=== PATIENT | male | born 1955 | race Two or more races ===

== ENCOUNTER 2024-09-06 17:10 | Inpatient (IN) | payer MEDICARE, BC ==
[~2024-09-06] VITALS: Ht 190.5 cm; Wt 126.4 kg
[2024-09-06 18:06] LABS: Basophils # (auto) 0.1 10 ^3/uL (0-0.2); Basophils % (auto) 0.8 % (0.0-2.0); Eosinophils # (auto) 0.3 10 ^3/uL (0-0.8); Eosinophils % (auto) 4.3 % (0.0-7.0); Hematocrit 43.3 % (41.0-53.0); Hemoglobin 14.6 g/dL (13.5-17.5); Lymphocytes # (auto) 1.2 10 ^3/uL (0.4-5.4); Lymphocytes % (auto) 14.5 % (10.0-50.0); Mean Corpuscular Hemoglobin 32.4 pg (28.0-32.0); Mean Corpuscular Hgb Conc. 33.6 g/dL (32.0-36.0); Mean Corpuscular Volume 96.4 fL (80.0-100.0); Monocytes # (auto) 0.7 10 ^3/uL (0-1.3); Neutrophils # (auto) 5.8 10 ^3/uL (1.6-8.6); Neutrophils % (auto) 71.4 % (37.0-80.0); Nucleated Red Blood Cells % 0.1 %; Platelet Count (auto) 291 10^3/uL (140-450); Red Blood Cells 4.49 10^6/uL (4.5-5.90); Red Cell Distribution Width 14.8 % (11.8-14.3); White Blood Cell 8.1 10^3/uL (4.4-10.8)
[2024-09-06] MEDS: CLINDAMYCIN 900MG IV 50 ML IV ONE (18:12)
[2024-09-06 18:21] LABS: Alanine Aminotransferase 43 U/L (7-40); Alkaline Phosphatase 100 U/L (46-116); Anion Gap 8 (5-15); Aspartate Aminotransferase 29 U/L (13-40); BUN/Creatinine Ratio 11.1 (10.0-20.0); Blood Urea Nitrogen 21 mg/dL (9-23); Calcium 9.5 mg/dL (8.7-10.4); Carbon Dioxide 26 mmol/L (20-31); Chloride 104 mmol/L (98-107); Glucose 140 mg/dL (74-106); Potassium 4.2 mmol/L (3.5-5.1); Sodium 138 mmol/L (136-145)
[2024-09-06 18:22] LABS: Albumin 4.4 g/dL (3.2-4.8); Bilirubin, Total 1.1 mg/dL (0.2-1.0); Total Protein 7.5 g/dL (5.7-8.2)
[2024-09-06 18:30] LABS: CRP High Sensitivity 7.56 mg/dL (<1.0)
[2024-09-06 19:03] LABS: Erythrocyte Sedimentation Rate 25 mm/hr (0-20)
[2024-09-06] MEDS ORDERED: MORPHINE SULFATE INJ 2 MG/ml SYRG IV PRN ×2 (22:00→23:00)
[2024-09-06] MEDS ORDERED: hydrALAZINE HCL 20 MG/ML VL IV PRN (22:00)
[2024-09-06] MEDS ORDERED: DOCUSATE SOD 100 MG CAP PO PRN (22:00)
[2024-09-06] MEDS ORDERED: ONDANSETRON HCL 4 MG/2 ML VIAL IV PRN (22:00)
[2024-09-06] MEDS ORDERED: HYDROcodone-ACET 5/325MG TAB PO PRN (22:00)
[2024-09-06] MEDS ORDERED: ACETAMINOPHEN 325 MG TAB PO PRN (22:00)
[2024-09-06] MEDS ORDERED: NITROGLYCERIN 0.4 MG SL TAB SL PRN (23:00)
[2024-09-06] MEDS: METOPROLOL TARTRATE 50 MG TAB PO SCH (23:02)
[2024-09-06] MEDS: SODIUM CHLOR 0.9% PF (SALINE LOCK) 10ML VIAL/SYR IV SCH (23:04)
[2024-09-06 23:56] VITALS: PULSE 71; RESP 11; O2SAT 99
[2024-09-07] VITALS (8 sets, daily range): BP systolic 114–144; BP diastolic 74–92; PULSE 67–76; RESP 16–18; TEMP 97.9–98.2; O2SAT 93–96
[2024-09-07 04:36] LABS: Urine Clarity CLEAR (Clear); Urine Color Yellow (Yellow); Urine Protein, UAD Trace (Negative); Urine Specific Gravity 1.021 (1.001-1.035)
[2024-09-07 04:37] LABS: Urine Blood Normal /uL (Negative); Urine Urobilinogen Normal (Negative); Urine pH 5.5 (5.0-9.0)
[2024-09-07 05:19] LABS: Urine WBC 0-3 /hpf (0 - 3)
[2024-09-07 05:20] LABS: Urine Bacteria Rare /hpf (None Seen); Urine Budding Yeast Rare /hpf (None Seen); Urine Mucus Few (None Seen)
[2024-09-07] MEDS ORDERED: CLINDAMYCIN 600MG IV 50 ML IV SCH (06:00)
[2024-09-07] MEDS: CLINDAMYCIN 600MG IV 50 ML IV SCH (07:26)
[2024-09-07] MEDS: RIVAROXABAN 20 MG TAB PO SCH (11:03)
[2024-09-07 14:07] LABS: Anion Gap 6 (5-15); Carbon Dioxide 25 mmol/L (20-31); Chloride 104 mmol/L (98-107); Potassium 4.1 mmol/L (3.5-5.1); Sodium 135 mmol/L (136-145)
[2024-09-07 14:08] LABS: Calcium 9.3 mg/dL (8.7-10.4)
[2024-09-07 14:13] LABS: BUN/Creatinine Ratio 13.1 (10.0-20.0); Blood Urea Nitrogen 22 mg/dL (9-23); Glucose 148 mg/dL (74-106)
[2024-09-07] MEDS ORDERED: MELO15TA29 PO (15:22)
[2024-09-07] MEDS ORDERED: BUPR-581 PO (15:22)
[2024-09-07] MEDS ORDERED: DULO1CAP6 PO (15:22)
[2024-09-07] MEDS ORDERED: LOSA-535 PO (15:22)
[2024-09-07] MEDS ORDERED: AMLO1TAB23 PO (15:22)
[2024-09-07] MEDS ORDERED: METO-159 PO (15:22)
[2024-09-07] MEDS ORDERED: FURO20TA4 PO (15:22)
[2024-09-08 01:00] VITALS: BP 134/83; PULSE 71; RESP 17; TEMP 98.3; O2SAT 95
[2024-09-08 05:00] VITALS: BP 129/73; PULSE 70; RESP 18; TEMP 98; O2SAT 95
[2024-09-08 06:21] LABS: Anion Gap 4 (5-15); Carbon Dioxide 28 mmol/L (20-31); Chloride 106 mmol/L (98-107); Potassium 4.6 mmol/L (3.5-5.1); Sodium 138 mmol/L (136-145)
[2024-09-08 06:23] LABS: Calcium 9.7 mg/dL (8.7-10.4)
[2024-09-08 06:27] LABS: BUN/Creatinine Ratio 12.2 (10.0-20.0); Blood Urea Nitrogen 20 mg/dL (9-23); Glucose 102 mg/dL (74-106)
[2024-09-08 08:00] VITALS: PULSE 61; PULSE 74; RESP 18
[2024-09-08 08:12] VITALS: BP 134/98; PULSE 73; RESP 19; TEMP 97.9; O2SAT 95
[2024-09-08 11:30] VITALS: BP 151/82; PULSE 71; RESP 19; TEMP 98; O2SAT 95
[2024-09-08] MEDS ORDERED: RIV20T PO (11:31)
[2024-09-08] MEDS ORDERED: DOXY1CAP57 PO (13:54)
== END 2024-09-08 14:32 | disposition home or self-care (01) | DRG 602 ==
LOC: ER 17:10 → TELE 23:01 → TELE-WESTW 09-07 05:15
PROVIDERS: ADMIT Nurse Practitioner Family; ATTEND Hospitalist
DX: L03.115 Cellulitis of right lower limb (principal); N17.0 Acute kidney failure with tubular necrosis; I82.531 Chronic embolism and thrombosis of right popliteal vein; R73.9 Hyperglycemia, unspecified; I48.91 Unspecified atrial fibrillation; I50.9 Heart failure, unspecified; N18.9 Chronic kidney disease, unspecified; Z82.49 Family history of ischemic heart disease and other diseases of the circulatory system; Z80.8 Family history of malignant neoplasm of other organs or systems; Z79.899 Other long term (current) drug therapy; Z82.61 Family history of arthritis
CPT/HCPCS: 36415; 71045; 76775; 80048; 80053; 81001; 83036; 83605; 83880; 84484; 85025; 85652; 86141; 93970; G0378; J3490

== ENCOUNTER 2025-02-18 18:33 | Emergency (ER) | payer MEDICARE, BC ==
[~2025-02-18] VITALS: Ht 188 cm; Wt 59.0 kg
[2025-02-18 18:33] VITALS: O2SAT 0
[~2025-02-18 18:33] MED LIST: AMLO1TAB23 PO; BUPR-581 PO; DOXY1CAP57 PO; DULO1CAP6 PO; FURO20TA4 PO; LOSA-535 PO; MELO15TA29 PO; METO-159 PO; RIV20T PO
[2025-02-18] MEDS ORDERED: ATROPINE SULF 1 MG/10ml SYR IM ONE ×2 (18:34)
[2025-02-18] MEDS: NOREPINEPHRINE 8 MG/250ML KIT 250 ML IV ONE (18:43)
[2025-02-18] MEDS: NOREPINEPHRINE 8 MG/250ML KIT 250 ML IV SCH (18:50)
[2025-02-18] MEDS: EPINEPHrine HCL 250 ML IV SCH (18:50)
[2025-02-18] MEDS: EPINEPHrine HCL 250 ML IV ONE (18:51)
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
[2025-02-18] MEDS: EPINEPHrine HCL 1 MG/10 ML SYRG ONE ×2 (19:02→19:24)
[2025-02-18] MEDS: levETIRAcetam 500 MG/5ML INJ IV ONE (19:17)
[2025-02-18] MEDS: levETIRAcetam 1000 mg/100ml 100 ML IV ONE (19:17)
[2025-02-18] MEDS: DexAMETHasone SOD PHOS 10MG/1ML VIAL INJ ONE ×2 (19:17)
--- NOTE | 2025-02-18 19:18 | DVH ---
EXAM: XY CHEST PORTABLE TECHNIQUE: Single frontal chest radiograph CLINICAL HISTORY: POST CPR COMPARISON: XY CHEST PORTABLE on DOS: 09/06/24 Findings/Impression: Frontal chest radiograph demonstrates no acute osseous or superficial soft tissue abnormalities. The endotracheal tube measures 4.4 cm from the magdalene. The trachea is midline. The cardiac silhouette and mediastinum are within normal limits. No pneumothorax, pleural effusions, or consolidations.
[2025-02-18] MEDS: DexAMETHasone SOD PHOS 10MG/1ML VIAL INJ IV ONE (19:25)
[2025-02-18] MEDS: PHENYLEPHRINE IV 250 ML IV ONE (19:49)
--- NOTE | 2025-02-18 19:51 | RESUS ---
CODE BLUE ASSESSSMENT History of Events History of Events: SECOND CODE BLUE. Initial Information Date: Feb 18, 2025 Time: 18:53 Location of Arrest: ER Arrest Witnessed: Yes CPR started initial time: 18:53 CPR started by whom: Hospital Staff Pre-Hospital Care: ACLS Type of arrest: Cardiac Spontaneous Respirations: No Pulse Present: No Monitoring: Pulse Oximetry, Telemetry Crash Cart Opened and Supplies: Yes Airway Ventilation Breathing at Onset: Assisted Oxygen Delivery Method: Ambu-Bag Artificial Ventilation: Bag/Endo tube Circulation Circulation #1: Time: 18:55 Pulse Rate (adult): 0 Blood Pressure Systolic: 0 Blood Pressure Diastolic: 0 Circulation #2: Time: 18:58 Pulse Rate (adult): 0 Blood Pressure Systolic: 0 Blood Pressure Diastolic: 0 Circulation #3: Time: 19:00 Circulation Comment: PT IN PULSELESS V-TACH Circulation #4: Time: 19:02 Pulse Rate (adult): 0 Blood Pressure Systolic: 0 Blood Pressure Diastolic: 0 Circulation #5: Time: 19:04 Pulse Rate (adult): 0 Blood Pressure Systolic: 0 Blood Pressure Diastolic: 0 Circulation #6: Time: 19:07 Pulse Rate (adult): 93 Defibrillation Defbrillation #1: Time Defibrillator Applied: 19:00 EKG Rhythm: V-Tachycardia Compressions: Manual Defib. Joules: 200 Pulse Present: No Defbrillation #2: Time Defibrillator Applied: 19:02 EKG Rhythm: V-Fibrillation Compressions: Manual Defib. Joules: 200 Pulse Present: No Defbrillation #3: Time Defibrillator Applied: 19:04 EKG Rhythm: V-Fibrillation Defib. Joules: 200 Pulse Present: No Medications & Response Medications and Responses #1: Medication Time: 18:54 ADULT Medications Given ADULT: Epinephrine 1 mg Route of Administration: IV Heart Rate: 0 EKG Rhythm: Asystole EKG Rhythm: Asystole Medications and Responses #2: Medication Time: 18:54 ADULT Medications Given ADULT: Atropine 1 mg Route of Administration: IV EKG Rhythm: Asystole EKG Rhythm: Asystole Medications and Responses #3: Medication Time: 18:57 ADULT Medications Given ADULT: Epinephrine 1 mg Route of Administration: IV Heart Rate: 0 EKG Rhythm: Asystole EKG Rhythm: Asystole Medications and Responses #4: Medication Time: 19:00 ADULT Medications Given ADULT: Epinephrine 1 mg Route of Administration: IV EKG Rhythm: Asystole EKG Rhythm: Asystole Medications and Responses #5: Medication Time: 19:01 ADULT Medications Given ADULT: Sodium Bacarbinate 50 meq Medications and Responses #6: Medication Time: 19:01 ADULT Medications Given ADULT: Calcium Chloride 10 mL Medications and Responses #7: Medication Time: 19:02 ADULT Medications Given ADULT: Amiodarone 300 mg Route of Administration: IV EKG Rhythm: V-Tachycardia Medications and Responses #8: Medication Time: 19:02 ADULT Medications Given ADULT: Magnesium Sulfate 2 gm Route of Administration: IV Medications and Responses #9: Medication Time: 19:03 ADULT Medications Given ADULT: Epinephrine 1 mg Route of Administration: IV EKG Rhythm: V-Fibrillation EKG Rhythm: V-Fibrillation Medications and Responses #10: Medication Time: 19:06 ADULT Medications Given ADULT: Epinephrine 1 mg EKG Rhythm: V-Fibrillation Nurses Notes [place] Coma Scale Eye Opening: None (1) [place] Coma Scale Verbal: None (1) [place] Coma Scale Motor: None (1) Pupil Reaction: Non Reactive Time Code Ended Time Code Ended: 19:07 Outcome of code: Successful Code Team Present: SAME CODE TEAM PRESENT. ROSC Time of ROSC: 19:07 TAET GIPSON Feb 18, 2025 19:51
[2025-02-18 19:57] VITALS: BP 187/150; PULSE 37; RESP 8
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
== END 2025-02-18 19:56 ==
LOC: EDBD 18:33 → EDUNIT# 18:33 → ER 18:33
DX: I46.9 Cardiac arrest, cause unspecified (principal); Z79.01 Long term (current) use of anticoagulants; Z79.1 Long term (current) use of non-steroidal anti-inflammatories (NSAID); Z79.899 Other long term (current) drug therapy
CPT/HCPCS: 31500; 36430; 36556; 71045; 82947; 86920; 92950; 96374; 99285; J0171; J0282; J1100; J1265; J1953; J2370; J3475; J7060; P9016; 82962